=== PATIENT | male | born 1955 | race Caucasian/White ===

== ENCOUNTER 2016-12-25 08:19 | Day surgery (SDC) | payer BC ==
[~2016-12-25] VITALS: Ht 182.9 cm; Wt 91.3 kg
[2016-12-25 08:53] VITALS: BP 151/89; PULSE 58; TEMP 98.4
[2016-12-25 10:10] VITALS: BP 133/78; PULSE 59; TEMP 97.4
[2016-12-25 10:25] VITALS: BP 129/86; PULSE 55
[2016-12-25 10:40] VITALS: BP 119/74; PULSE 58
[2016-12-25 13:38] VITALS: BP 119/74; PULSE 50
== END 2016-12-25 11:20 | disposition home or self-care (01) ==
LOC: SDCO 08:19
DX: Z12.11 Encounter for screening for malignant neoplasm of colon (principal); Z87.19 Personal history of other diseases of the digestive system; Z80.0 Family history of malignant neoplasm of digestive organs; K57.30 Diverticulosis of large intestine without perforation or abscess without bleeding; K64.0 First degree hemorrhoids; K42.9 Umbilical hernia without obstruction or gangrene
CPT/HCPCS: OP; J2250; J3010; J7030